=== PATIENT | female | born 1950 | race Two or more races ===

== ENCOUNTER 2022-04-25 14:50 | Outpatient (CLI) | payer OTHER | END 2022-04-25 15:01 | disposition home or self-care (01) | LOC: RAD 14:50 | PROVIDERS: ATTEND Neurological Surgery | DX: M48.02 Spinal stenosis, cervical region (principal); M50.022 Cervical disc disorder at C5-C6 level with myelopathy; M50.123 Cervical disc disorder at C6-C7 level with radiculopathy; S12.3 Fracture of fourth cervical vertebra; M40.12 Other secondary kyphosis, cervical region; G95.29 Other cord compression; S14.109D Unspecified injury at unspecified level of cervical spinal cord, subsequent encounter; M62.81 Muscle weakness (generalized); M43.8X9 Other specified deforming dorsopathies, site unspecified ==